=== PATIENT | male | born 1975 ===

== ENCOUNTER → 2018-05-21 | Outpatient (CLI) | payer OTHER ==
--- NOTE | 2018-05-21 10:12 | REP ---
LEFT KNEE SERIES, FIVE VIEWS: Five views of the left knee are performed. There is no acute fracture or dislocation. Joint spaces are normal. There is a tiny spur of the lateral patellar facet. No radiographic evidence of joint effusion is seen. IMPRESSION: Tiny lateral patellar facet spur. Joint spaces are normal. Electronically Signed by Bennett Harrell MD 05/21/2018 04:58 P
== END ==
LOC: M RAD 08:42
PROVIDERS: ATTEND Surgery
DX: M25.562 Pain in left knee (principal); M77.9 Enthesopathy, unspecified